=== PATIENT | female | born 1990 | race Caucasian/White ===

== ENCOUNTER 2019-10-25 15:55 | Observation (INO) | payer MEDICAID ==
[~2019-10-25] VITALS: Ht 165.1 cm; Wt 82.0 kg
[~2019-10-25 15:55] MED LIST: HYDR-3717 PO; LEVO1TAB PO
[2019-10-25] MEDS ORDERED: normal saline 1000ML IV soln IVB ONE ×3 (16:05→16:50)
[2019-10-25] MEDS ORDERED: ondansetron/PF 4mg/2ml inj IV ONE ×2 (16:20→17:55)
[2019-10-25] MEDS ORDERED: morphine 4 MG/ML inj SYRINge IV ONE ×2 (16:20→17:55)
[2019-10-25 16:39] LABS: BASOPHILS # (AUTO) 0.1 X10'3 (0-0.2); BASOPHILS % (AUTO) 1.3 % (0-1); EOSINOPHILS # (AUTO) 0.1 X10'3 (0-0.9); HEMATOCRIT 39.7 % (35.0-45.0); HEMOGLOBIN 13.8 g/dl (12.0-16.0); LYMPHOCYTES # (AUTO) 1.6 X10'3 (1.1-4.8); LYMPHOCYTES % (AUTO) 16.1 % (21-51); MEAN CORPUSCULAR HEMOGLOBIN 29.9 PG (27.0-31.0); MEAN CORPUSCULAR HGB CONC 34.7 g/dL (33.0-36.5); MEAN PLATELET VOLUME 8.3 FL (7.4-10.4); MONOCYTES # (AUTO) 0.4 X10'3 (0-0.9); MONOCYTES % (AUTO) 4.5 % (2-12); NEUTROPHILS # (AUTO) 7.6 X10'3 (1.8-7.7); NEUTROPHILS % (AUTO) 77.1 % (42-75); PLATELET COUNT 388 X10'3 (140-440); RED BLOOD COUNT 4.61 X10'6 (4.20-5.60); RED CELL DISTRIBUTION WIDTH 13.2 % (11.5-14.5); WHITE BLOOD COUNT 9.8 X10'3 (4.5-11.0)
--- NOTE | 2019-10-25 16:59 | NUR ---
RENAL/BLADDER US DONE
[2019-10-25 17:04] LABS: ALANINE AMINOTRANSFERASE 22 U/L (12-78); ALBUMIN 3.2 G/DL (3.4-5.0); ALBUMIN/GLOBULIN RATIO 0.8 (1.1-1.5); ALKALINE PHOSPHATASE 132 IU/L (46-116); AMYLASE 32 U/L (25-115); ANION GAP 9 (8-16); ASPARTATE AMINO TRANSFERASE 25 U/L (10-37); BILIRUBIN,TOTAL 0.2 MG/DL (0.1-1.0); BLOOD UREA NITROGEN 10 MG/DL (7-18); BUN/CREATININE RATIO 9.3 (6.6-38.0); CALCIUM 8.9 MG/DL (8.5-10.1); CHLORIDE 104 MMOL/L (99-107); CREATININE 1.07 MG/DL (0.40-0.90); GLUCOSE 105 MG/DL (70-104); LIPASE 159 U/L (73-393); POTASSIUM 3.6 MMOL/L (3.5-5.1); SODIUM 139 MMOL/L (135-145); TOTAL CARBON DIOXIDE 25.8 MMOL/L (24-32); TOTAL PROTEIN 7.2 G/DL (6.4-8.2); eGFR 60 ML/MIN
--- NOTE | 2019-10-25 17:06 | NUR ---
Mobyko STATES THERES ABOUT 18CC OF URINE IN BLADDER. WILL COLLECT URINE AFTER 2ND BOLUS OF FLUID OR WHEN PT HAS URGE TO URINATE.
[2019-10-25] MEDS ORDERED: normal saline 1000ml 1,000 ML IVB ONE (18:02)
[2019-10-25 18:29] LABS: CLARITY,URINE CLEAR (Clear); COLOR,URINE YELLOW (Yellow); GLUCOSE, URINE NEGATIVE (Neg); KETONES,URINE 15 mg/dl (Neg); LEUKOCYTE ESTERASE ,URINE NEGATIVE (Neg); NITRITES, URINE NEGATIVE (Neg); OCCULT BLOOD,URINE LARGE (Neg); PROTEIN,URINE TRACE mg/dl (Neg); UROBILINOGEN,URINE 0.2 E.U/dL (0.2-1.0)
[2019-10-25 18:33] LABS: UA COLLECTION TYPE STRAIGHT CATH
[2019-10-25 18:35] LABS: BACTERIA,URINE NONE SEEN /HPF (Neg); MUCUS STRANDS FEW /LPF (Neg); SQUAMOUS EPITHELIAL CELL,UR MODERATE /LPF (FEW); URINE HCG NEGATIVE (NEG); WBC,URINE 0-4 /HPF (0-4)
[2019-10-25] MEDS ORDERED: ketorolac tromethamine 15mg/ml inj. IV ONE (19:15)
[2019-10-25] MEDS ORDERED: meperidine/PF 50mg/ml syringe IV ONE (19:50)
[2019-10-25] MEDS ORDERED: NORG1TAB78 PO (20:19)
[2019-10-25] MEDS ORDERED: AMIT-189 PO (20:19)
[2019-10-25] MEDS ORDERED: morphine 2 MG/ML inj. syringe IV PRN (20:55)
[2019-10-25] MEDS ORDERED: magnesium 4gm in 100ml NS 100 ML IV PRN (20:55)
[2019-10-25] MEDS ORDERED: potassium CL 10mEq/100ml bag 100 ML IV PRN ×2 (20:55)
[2019-10-25] MEDS ORDERED: magnesium 2GM in 50ml NS 50 ML IV PRN (20:55)
[2019-10-25] MEDS ORDERED: acetaminophen 325mg tablet PO PRN (20:55)
[2019-10-25] MEDS ORDERED: magnesium Cl slow-release 64mg tablet PO PRN (20:55)
[2019-10-25] MEDS ORDERED: mag hydrox/Alum hydrox/simeth 30ml oral suspension PO PRN (20:55)
[2019-10-25] MEDS ORDERED: ondansetron/PF 4mg/2ml inj IV PRN (20:55)
[2019-10-25] MEDS ORDERED: magnesium hydroxide 30ml (MOM) UD suspension PO PRN (20:55)
[2019-10-25] MEDS ORDERED: HYDROcodone/acetaminophen 5mg/325mg tablet PO PRN (20:55)
[2019-10-25] MEDS ORDERED: potassium Cl 20 mEq SR tablet PO PRN ×2 (20:55)
[2019-10-25] MEDS ORDERED: sildenafil citrate 20mg tablet PO SCH (21:00)
--- NOTE | 2019-10-25 21:50 | NUR ---
Received report from FRAME TABLE OPERATORTAWANA Pappas. Patient to follow shortly.
[2019-10-25 22:00] VITALS: BP 109/77
--- NOTE | 2019-10-25 22:00 | NUR ---
Patient arrived to floor via W/C from ER accompanied by her . Pt. A&O x4 and in no apparent distress at this time. Pt. ambulated from w/c to bed and settled in. VS taken.
[2019-10-25] MEDS: amitriptyline 50mg tablet PO SCH (23:30)
[2019-10-25] MEDS: morphine 2 MG/ML inj. syringe IV PRN (23:34)
[2019-10-26] VITALS (10 sets, daily range): BP systolic 100–121; BP diastolic 61–79
[2019-10-26 05:12] LABS: BASOPHILS # (AUTO) 0.1 X10'3 (0-0.2); BASOPHILS % (AUTO) 0.8 % (0-1); EOSINOPHILS # (AUTO) 0.1 X10'3 (0-0.9); EOSINOPHILS % (AUTO) 0.8 % (0-6); HEMOGLOBIN 12.2 g/dl (12.0-16.0); LYMPHOCYTES # (AUTO) 2.3 X10'3 (1.1-4.8); LYMPHOCYTES % (AUTO) 22.8 % (21-51); MEAN CORPUSCULAR HGB CONC 34.8 g/dL (33.0-36.5); MEAN CORPUSCULAR VOLUME 86.2 FL (78-98); MEAN PLATELET VOLUME 8.9 FL (7.4-10.4); MONOCYTES # (AUTO) 0.7 X10'3 (0-0.9); MONOCYTES % (AUTO) 6.8 % (2-12); NEUTROPHILS # (AUTO) 6.9 X10'3 (1.8-7.7); NEUTROPHILS % (AUTO) 68.8 % (42-75); PLATELET COUNT 301 X10'3 (140-440); RED BLOOD COUNT 4.06 X10'6 (4.20-5.60); RED CELL DISTRIBUTION WIDTH 13.2 % (11.5-14.5)
[2019-10-26 05:20] LABS: ALBUMIN 2.4 G/DL (3.4-5.0); ANION GAP 7 (8-16); BLOOD UREA NITROGEN 8 MG/DL (7-18); BUN/CREATININE RATIO 7.8 (6.6-38.0); CALCIUM 7.7 MG/DL (8.5-10.1); CHLORIDE 110 MMOL/L (99-107); CREATININE 1.02 MG/DL (0.40-0.90); GLUCOSE 103 MG/DL (70-104); MAGNESIUM 1.7 MG/DL (1.5-2.4); PARTIAL THROMBOPLASTIN TIME 27 SECONDS (22-32); POTASSIUM 4.2 MMOL/L (3.5-5.1); SODIUM 142 MMOL/L (135-145); eGFR 64 ML/MIN
--- NOTE | 2019-10-26 06:15 | NUR ---
Patient in room TEETEE 347. I have received report from RODOLFO GILLIAM and had the opportunity to ask questions and assume patient care.
--- NOTE | 2019-10-26 06:30 | NUR ---
Problems reprioritized. Patient report given, questions answered & plan of care reviewed with Farrah GILLIAM.
[2019-10-26] MEDS ORDERED: heparin, porcine 5000 units/ml vial SQ SCH (08:00)
[2019-10-26] MEDS: K and/or MAG REPLACEMENT MC SCH (08:00)
[2019-10-26] MEDS ORDERED: NORGESTIMATE ETHINYL ESTRADIOL PO SCH (08:00)
[2019-10-26] MEDS: normal saline 1000ml 1,000 ML IV SCH ×3 (08:08→22:49)
--- NOTE | 2019-10-26 08:09 | NUR ---
PT'S HOME MEDICATION IS NOT WITH HER. SHE CALLED HER TO BEING IT IN TODAY. WILL NOTIFY PHARMACY.
[2019-10-26] MEDS ORDERED: pneumococcal 23-VAL P-sac vacc 25 mcg/0.5ml vial IMVAC ONE (10:00)
[2019-10-26] MEDS: morphine 2 MG/ML inj. syringe IV PRN ×2 (10:47→22:51)
[2019-10-26] MEDS ORDERED: fentaNYL/PF 50MCG/1 ML 2ML syringe ONE (14:29)
[2019-10-26] MEDS ORDERED: midazolam 2 mg/2 ml injection ONE (14:30)
[2019-10-26] MEDS ORDERED: propofol inj 20 ML IV ONE (14:35)
[2019-10-26] MEDS ORDERED: ceFAZolin 1000mg inj ONE ×2 (14:39)
--- NOTE | 2019-10-26 15:15 | NUR ---
Received from OR via BED, accompanied by Anesthesiologist DR MUHAMMAD and report given by Anesthesiolgist. PATIENT A&OX4, DENIES PAIN, V/S WNL, NEUROVASCULAR CHECKS INTACT, 20G PIV TO RUE, SCD ON, NO DRESSINGS, NO DRAINAGE FROM CYSTOSCOPY
[2019-10-26] MEDS ORDERED: ringers solution, lacted 1,000 ML IV SCH (15:19)
[2019-10-26] MEDS ORDERED: proCHLORperazine 10 MG/2 ml inj IV PRN (15:20)
[2019-10-26] MEDS ORDERED: ondansetron/PF 4mg/2ml inj IV PRN (15:20)
[2019-10-26] MEDS ORDERED: meperidine/PF 25mg/ml syringe IV PRN ×3 (15:20)
[2019-10-26] MEDS ORDERED: morphine 4 MG/ML inj SYRINge IV PRN ×2 (15:20)
--- NOTE | 2019-10-26 15:55 | NUR ---
PATIENT A&OX4, DENIES PAIN, V/S WNL, NEUROVASCULAR CHECKS INTACT, 20G PIV TO RUE, SCD ON, NO DRESSINGS, NO DRAINAGE FROM CYSTOSCOPY. ALL CRITERIA FOR TRANSFER TO THE FLOOR HAS BEEN ACHIEVED. VSS. BED LOW, CALL LIGHT AND VS. SET IN PLACE. RN PRESENT TO ACCEPT CARE. PATIENT RESTING COMFORTABLY IN BED. BELONGINGS SENT WITH PATIENT. DRESSINGS CDI.
--- NOTE | 2019-10-26 17:40 | NUR ---
Problems reprioritized. Patient report given, questions answered & plan of care reviewed with RODOLFO GILLIAM.
--- NOTE | 2019-10-26 18:30 | NUR ---
Patient in room TEETEE 347. I have received report from Farrah GILLIAM and had the opportunity to ask questions and assume patient care.
[2019-10-26] MEDS: amitriptyline 50mg tablet PO SCH (20:47)
[2019-10-27] VITALS: BP 98/64
[2019-10-27 05:20] LABS: ALBUMIN 2.3 G/DL (3.4-5.0); ANION GAP 8 (8-16); BLOOD UREA NITROGEN 6 MG/DL (7-18); BUN/CREATININE RATIO 6.4 (6.6-38.0); CALCIUM 7.8 MG/DL (8.5-10.1); CHLORIDE 110 MMOL/L (99-107); CREATININE 0.94 MG/DL (0.40-0.90); GLUCOSE 89 MG/DL (70-104); MAGNESIUM 1.7 MG/DL (1.5-2.4); POTASSIUM 3.8 MMOL/L (3.5-5.1); SODIUM 143 MMOL/L (135-145); TOTAL CARBON DIOXIDE 24.6 MMOL/L (24-32); eGFR 70 ML/MIN
[2019-10-27 05:26] LABS: BASOPHILS # (AUTO) 0.1 X10'3 (0-0.2); BASOPHILS % (AUTO) 0.6 % (0-1); EOSINOPHILS # (AUTO) 0.2 X10'3 (0-0.9); EOSINOPHILS % (AUTO) 3.1 % (0-6); HEMATOCRIT 35.1 % (35.0-45.0); HEMOGLOBIN 12.1 g/dl (12.0-16.0); LYMPHOCYTES # (AUTO) 2.3 X10'3 (1.1-4.8); LYMPHOCYTES % (AUTO) 29.1 % (21-51); MEAN CORPUSCULAR HEMOGLOBIN 30.2 PG (27.0-31.0); MEAN CORPUSCULAR HGB CONC 34.5 g/dL (33.0-36.5); MEAN CORPUSCULAR VOLUME 87.4 FL (78-98); MEAN PLATELET VOLUME 8.7 FL (7.4-10.4); MONOCYTES # (AUTO) 0.4 X10'3 (0-0.9); MONOCYTES % (AUTO) 5.3 % (2-12); NEUTROPHILS % (AUTO) 61.9 % (42-75); PLATELET COUNT 290 X10'3 (140-440); RED BLOOD COUNT 4.02 X10'6 (4.20-5.60); RED CELL DISTRIBUTION WIDTH 13.4 % (11.5-14.5); WHITE BLOOD COUNT 8.1 X10'3 (4.5-11.0)
--- NOTE | 2019-10-27 06:23 | NUR ---
Patient in room TEETEE 346. I have received report from RODOLFO GILLIAM and had the opportunity to ask questions and assume patient care.
[2019-10-27 07:00] VITALS: BP 100/56
[2019-10-27] MEDS: K and/or MAG REPLACEMENT MC SCH (08:00)
[2019-10-27] MEDS: normal saline 1000ml 1,000 ML IV SCH (08:54)
[2019-10-27] MEDS ORDERED: PHEN-716 PO (09:25)
== END 2019-10-27 10:30 | disposition home or self-care (01) ==
LOC: ER 15:55 → INTOOBSV 21:23 → ED HOLD 21:23 → SUR 3N 22:00
PROVIDERS: ADMIT Hospitalist; ATTEND Hospitalist
DX: N13.2 Hydronephrosis with renal and ureteral calculous obstruction (principal); Z23 Encounter for immunization; Z88.8 Allergy status to other drugs, medicaments and biological substances
CPT/HCPCS: 36415; 52320; 52332; 74176; 76000; 76775; 80048; 80053; 81001; 81025; 82150; 83690; 83735; 85025; 85610; 85730; 87081; 90471; 90732; 96374; 96375; 96376; 99284; C1769; C2617; G0378; J0690; J1885; J2175; J2250; J2270; J2405; J2704; J3010; J7030; A4618; J7120

== ENCOUNTER 2019-11-22 20:10 | Inpatient (IN) | payer MEDICAID, OTHER ==
[~2019-11-22] VITALS: Ht 165.1 cm; Wt 93.0 kg
[~2019-11-22 20:10] MED LIST changes: +AMIT-189 PO; -HYDR-3717 PO; -LEVO1TAB PO; +NORG1TAB78 PO; +PHEN-716 PO
[2019-11-22 21:39] LABS: CLARITY,URINE CLOUDY (Clear); COLOR,URINE YELLOW (Yellow); GLUCOSE, URINE NEGATIVE (Neg); KETONES,URINE TRACE mg/dl (Neg); LEUKOCYTE ESTERASE ,URINE SMALL (Neg); NITRITES, URINE NEGATIVE (Neg); OCCULT BLOOD,URINE LARGE (Neg); PROTEIN,URINE 100 mg/dl (Neg); UROBILINOGEN,URINE 0.2 E.U/dL (0.2-1.0)
[2019-11-22 21:40] LABS: UA COLLECTION TYPE CLN CATCH MIDSTREAM
[2019-11-22 21:48] LABS: BACTERIA,URINE 1+ /HPF (Neg)
[2019-11-22 21:49] LABS: SQUAMOUS EPITHELIAL CELL,UR MODERATE /LPF (FEW)
[2019-11-22] MEDS ORDERED: meperidine/PF 50mg/ml syringe IV ONE (21:55)
[2019-11-22] MEDS ORDERED: ondansetron/PF 4mg/2ml inj IV ONE (21:55)
[2019-11-22] MEDS ORDERED: ketorolac tromethamine 15mg/ml inj. IV ONE (21:55)
[2019-11-22] MEDS ORDERED: CefTRIAXone 2gm/D5W 50ml 50 ML IV ONE (21:55)
[2019-11-22] MEDS ORDERED: normal saline 1000ML IV soln IV ONE (21:55)
[2019-11-22] MEDS ORDERED: tamsulosin 0.4mg capsule PO ONE (21:55)
[2019-11-22 22:15] LABS: URINE HCG NEGATIVE (NEG)
[2019-11-22 22:38] LABS: BASOPHILS # (AUTO) 0.1 X10'3 (0-0.2); EOSINOPHILS # (AUTO) 0.2 X10'3 (0-0.9); EOSINOPHILS % (AUTO) 2.5 % (0-6); HEMATOCRIT 43.5 % (35.0-45.0); HEMOGLOBIN 15.2 g/dl (12.0-16.0); LYMPHOCYTES # (AUTO) 2.1 X10'3 (1.1-4.8); LYMPHOCYTES % (AUTO) 23.9 % (21-51); MEAN CORPUSCULAR HEMOGLOBIN 30.1 PG (27.0-31.0); MEAN CORPUSCULAR HGB CONC 34.8 g/dL (33.0-36.5); MEAN CORPUSCULAR VOLUME 86.3 FL (78-98); MEAN PLATELET VOLUME 8.7 FL (7.4-10.4); MONOCYTES # (AUTO) 0.3 X10'3 (0-0.9); NEUTROPHILS # (AUTO) 5.9 X10'3 (1.8-7.7); NEUTROPHILS % (AUTO) 68.6 % (42-75); PLATELET COUNT 460 X10'3 (140-440); RED BLOOD COUNT 5.04 X10'6 (4.20-5.60); RED CELL DISTRIBUTION WIDTH 13.7 % (11.5-14.5); WHITE BLOOD COUNT 8.6 X10'3 (4.5-11.0)
[2019-11-22 22:48] LABS: PARTIAL THROMBOPLASTIN TIME 27 SECONDS (22-32)
[2019-11-22 22:50] LABS: ALANINE AMINOTRANSFERASE 50 U/L (12-78); ALBUMIN 3.7 G/DL (3.4-5.0); ALBUMIN/GLOBULIN RATIO 0.8 (1.1-1.5); ALKALINE PHOSPHATASE 135 IU/L (46-116); ANION GAP 11 (8-16); ASPARTATE AMINO TRANSFERASE 35 U/L (10-37); BILIRUBIN,TOTAL 0.2 MG/DL (0.1-1.0); BLOOD UREA NITROGEN 9 MG/DL (7-18); BUN/CREATININE RATIO 9.1 (6.6-38.0); CALCIUM 8.9 MG/DL (8.5-10.1); CHLORIDE 105 MMOL/L (99-107); CREATININE 0.99 MG/DL (0.40-0.90); GLUCOSE 107 MG/DL (70-104); MAGNESIUM 1.9 MG/DL (1.5-2.4); POTASSIUM 3.5 MMOL/L (3.5-5.1); SODIUM 141 MMOL/L (135-145); TOTAL CARBON DIOXIDE 25.5 MMOL/L (24-32); TOTAL PROTEIN 8.1 G/DL (6.4-8.2); eGFR 66 ML/MIN
[2019-11-22] MEDS ORDERED: mag hydrox/Alum hydrox/simeth 30ml oral suspension PO PRN (23:45)
[2019-11-22] MEDS ORDERED: magnesium 2GM in 50ml NS 50 ML IV PRN (23:45)
[2019-11-22] MEDS ORDERED: morphine 2 MG/ML inj. syringe IV PRN ×2 (23:45)
[2019-11-22] MEDS ORDERED: acetaminophen 325mg tablet PO PRN ×2 (23:45)
[2019-11-22] MEDS ORDERED: magnesium hydroxide 30ml (MOM) UD suspension PO PRN (23:45)
[2019-11-22] MEDS ORDERED: ondansetron/PF 4mg/2ml inj IV PRN (23:45)
[2019-11-22] MEDS ORDERED: magnesium 4gm in 100ml NS 100 ML IV PRN (23:45)
[2019-11-22] MEDS ORDERED: potassium CL 10mEq/100ml bag 100 ML IV PRN ×2 (23:45)
[2019-11-22] MEDS ORDERED: magnesium Cl slow-release 64mg tablet PO PRN (23:45)
[2019-11-22] MEDS ORDERED: potassium Cl 20 mEq SR tablet PO PRN ×2 (23:45)
--- NOTE | 2019-11-22 23:50 | NUR ---
PT NPO STATUS
--- NOTE | 2019-11-23 | NUR ---
Patient in room TEETEE 354. I have received report from TAWANA Hooks and had the opportunity to ask questions and assume patient care.
[2019-11-23 00:19] VITALS: BP 120/89
[2019-11-23] MEDS: HYDROcodone/acetaminophen 5mg/325mg tablet PO PRN ×2 (00:46→07:20)
[2019-11-23] MEDS ORDERED: ketorolac tromethamine 15mg/ml inj. IM PRN (02:35)
[2019-11-23 05:39] LABS: BASOPHILS # (AUTO) 0.1 X10'3 (0-0.2); BASOPHILS % (AUTO) 1.3 % (0-1); EOSINOPHILS # (AUTO) 0.2 X10'3 (0-0.9); EOSINOPHILS % (AUTO) 2.9 % (0-6); HEMATOCRIT 37.8 % (35.0-45.0); HEMOGLOBIN 12.9 g/dl (12.0-16.0); LYMPHOCYTES # (AUTO) 2.6 X10'3 (1.1-4.8); LYMPHOCYTES % (AUTO) 36.1 % (21-51); MEAN CORPUSCULAR HEMOGLOBIN 29.7 PG (27.0-31.0); MEAN CORPUSCULAR HGB CONC 34.3 g/dL (33.0-36.5); MEAN CORPUSCULAR VOLUME 86.6 FL (78-98); MEAN PLATELET VOLUME 8.6 FL (7.4-10.4); MONOCYTES # (AUTO) 0.6 X10'3 (0-0.9); MONOCYTES % (AUTO) 8.1 % (2-12); NEUTROPHILS # (AUTO) 3.7 X10'3 (1.8-7.7); NEUTROPHILS % (AUTO) 51.6 % (42-75); PLATELET COUNT 319 X10'3 (140-440); RED BLOOD COUNT 4.36 X10'6 (4.20-5.60); RED CELL DISTRIBUTION WIDTH 13.3 % (11.5-14.5); WHITE BLOOD COUNT 7.1 X10'3 (4.5-11.0)
[2019-11-23 05:43] LABS: ALBUMIN 2.8 G/DL (3.4-5.0); ANION GAP 8 (8-16); BLOOD UREA NITROGEN 8 MG/DL (7-18); CHLORIDE 109 MMOL/L (99-107); CREATININE 0.89 MG/DL (0.40-0.90); GLUCOSE 85 MG/DL (70-104); MAGNESIUM 1.8 MG/DL (1.5-2.4); POTASSIUM 3.7 MMOL/L (3.5-5.1); SODIUM 143 MMOL/L (135-145); TOTAL CARBON DIOXIDE 25.9 MMOL/L (24-32); eGFR 74 ML/MIN
--- NOTE | 2019-11-23 06:29 | NUR ---
Problems reprioritized. Patient report given, questions answered & plan of care reviewed with TAWANA Yan.
--- NOTE | 2019-11-23 06:30 | NUR ---
Patient in room TEETEE 354. I have received report from shaista wu and had the opportunity to ask questions and assume patient care.
[2019-11-23 07:05] VITALS: BP 107/67
--- NOTE | 2019-11-23 07:20 | NUR ---
pt was sleepy and taking shallow breathes. had her deep breathe cough and rechecked her temp and pulse temp 98.0 pulse 78
[2019-11-23] MEDS ORDERED: NORGESTIMATE ETHINYL ESTRADIOL PO SCH ×2 (08:00)
[2019-11-23] MEDS ORDERED: K and/or MAG REPLACEMENT MC SCH (08:00)
[2019-11-23] MEDS ORDERED: phenazopyridine 100mg tablet PO SCH (08:00)
[2019-11-23] MEDS ORDERED: FLU VACC QS2019-20 36MOS UP/PF 60 MCG/0.5 ML SYRINGE IMVAC ONE (10:00)
[2019-11-23] MEDS ORDERED: normal saline 1000ml 1,000 ML IV SCH (10:50)
[2019-11-23 11:00] VITALS: BP 105/67
[2019-11-23] MEDS ORDERED: CIPR-259 PO (14:08)
[2019-11-23] MEDS ORDERED: OMEP-297 PO (14:08)
[2019-11-23] MEDS ORDERED: IBUP-1984 PO (14:08)
[2019-11-23] MEDS ORDERED: ketorolac tromethamine 15mg/ml inj. IV PRN (16:00)
--- NOTE | 2019-11-23 16:14 | NUR ---
CHIKIS SCANNED MORPHINE AT 1315 TO GIVE TO PT, HE QUESTIONED ME ABOUT THE PAIN MED, ADMINISTERED THE PAIN MED IN MY PRESENCE BUT FORGOT TO SAVE THE DOCUMENTATION. CALLED PRAVEENA TO ASK HOW TO CORRECT THIS. SHE WALKED US THROUGH HOW TO BACK TIME TO THE TIME MED WAS GIVEN. DOCUMENTED AND EXPLAINED TO CHIKIS.
[2019-11-23] MEDS ORDERED: lactobacillus rhamnosus 10,000 MMU CELLS/CAPSULE PO SCH (20:00)
[2019-11-23] MEDS ORDERED: amitriptyline 50mg tablet PO SCH (21:00)
[2019-11-23] MEDS ORDERED: CefTRIAXone 2gm/D5W 50ml 50 ML IV SCH (21:00)
== END 2019-11-23 16:16 | disposition home or self-care (01) | DRG 690 ==
LOC: ER 20:15 → ED HOLD 11-23 00:28 → SUR 3N 11-23 00:35
PROVIDERS: ADMIT Hospitalist; ATTEND Internal Medicine
DX: N39.0 Urinary tract infection, site not specified (principal); Z82.49 Family history of ischemic heart disease and other diseases of the circulatory system; Z87.442 Personal history of urinary calculi; Z23 Encounter for immunization; Z88.8 Allergy status to other drugs, medicaments and biological substances; Z79.899 Other long term (current) drug therapy
CPT/HCPCS: 36415; 80048; 80053; 81001; 81025; 83605; 83735; 84145; 85025; 85610; 85730; 87040; 87077; 87081; 87088; 87186; 96365; 96375; 99285; G0378; J0696; J1885; J2175; J2270; J2405; J7030; Q2037

== ENCOUNTER 2020-08-27 03:10 | Inpatient (IN) | payer MEDICAID ==
[~2020-08-27] VITALS: Ht 165.1 cm; Wt 91.7 kg
[~2020-08-27 03:10] MED LIST changes: +OMEP20CA15 PO
[2020-08-27] MEDS ORDERED: ondansetron/PF 4mg/2ml inj IV ONE (03:30)
[2020-08-27] MEDS ORDERED: ketorolac trometh. 30mg/ml inj. IV ONE (03:30)
[2020-08-27 03:57] LABS: BASOPHILS # (AUTO) 0.1 X10'3 (0-0.2); BASOPHILS % (AUTO) 0.9 % (0-1); CLARITY,URINE CLOUDY (Clear); COLOR,URINE YELLOW (Yellow); EOSINOPHILS # (AUTO) 0.2 X10'3 (0-0.9); GLUCOSE, URINE NEGATIVE (Neg); HEMATOCRIT 39.8 % (35.0-45.0); HEMOGLOBIN 13.5 g/dl (12.0-16.0); KETONES,URINE NEGATIVE (Neg); LEUKOCYTE ESTERASE ,URINE SMALL (Neg); LYMPHOCYTES # (AUTO) 2.9 X10'3 (1.1-4.8); LYMPHOCYTES % (AUTO) 24.6 % (21-51); MEAN CORPUSCULAR HEMOGLOBIN 29.4 PG (27.0-31.0); MEAN CORPUSCULAR HGB CONC 33.8 g/dL (33.0-36.5); MEAN PLATELET VOLUME 8.3 FL (7.4-10.4); MONOCYTES # (AUTO) 0.8 X10'3 (0-0.9); MONOCYTES % (AUTO) 6.5 % (2-12); NEUTROPHILS # (AUTO) 7.7 X10'3 (1.8-7.7); NITRITES, URINE NEGATIVE (Neg); OCCULT BLOOD,URINE SMALL (Neg); PH,URINE 5.5 (4.8-8.0); PLATELET COUNT 427 X10'3 (140-440); PROTEIN,URINE 30 mg/dl (Neg); RED BLOOD COUNT 4.57 X10'6 (4.20-5.60); RED CELL DISTRIBUTION WIDTH 13.8 % (11.5-14.5); UROBILINOGEN,URINE 0.2 E.U/dL (0.2-1.0); WHITE BLOOD COUNT 11.6 X10'3 (4.5-11.0)
[2020-08-27 03:58] LABS: URINE HCG NEGATIVE (NEG)
[2020-08-27 04:02] LABS: ALANINE AMINOTRANSFERASE 30 U/L (12-78); ALBUMIN 3.6 G/DL (3.4-5.0); ALBUMIN/GLOBULIN RATIO 0.9 (1.1-1.5); ALKALINE PHOSPHATASE 161 IU/L (46-116); ANION GAP 11 (8-16); ASPARTATE AMINO TRANSFERASE 18 U/L (10-37); BILIRUBIN,TOTAL 0.3 MG/DL (0.1-1.0); BLOOD UREA NITROGEN 11 MG/DL (7-18); BUN/CREATININE RATIO 9.7 (6.6-38.0); CALCIUM 8.6 MG/DL (8.5-10.1); CHLORIDE 102 MMOL/L (99-107); CREATININE 1.13 MG/DL (0.40-0.90); GLUCOSE 130 MG/DL (70-104); LIPASE 180 U/L (73-393); POTASSIUM 3.7 MMOL/L (3.5-5.1); SODIUM 137 MMOL/L (135-145); TOTAL CARBON DIOXIDE 24.4 MMOL/L (24-32); TOTAL PROTEIN 7.7 G/DL (6.4-8.2); UA COLLECTION TYPE CLN CATCH MIDSTREAM; eGFR 56 ML/MIN
[2020-08-27 04:20] LABS: BACTERIA,URINE 3+ /HPF (Neg); SQUAMOUS EPITHELIAL CELL,UR MANY /LPF (FEW); WBC,URINE TNTC /HPF (0-4)
[2020-08-27] MEDS ORDERED: morphine 4 MG/ML inj SYRINge IV ONE ×2 (04:20→05:15)
[2020-08-27 04:21] LABS: WBC CLUMPS,URINE MANY /HPF (NEGATIVE)
[2020-08-27] MEDS ORDERED: fentaNYL/PF 50MCG/1 ML 2ML syringe IV ONE ×2 (04:35→05:55)
[2020-08-27] MEDS ORDERED: CefTRIAXone 2gm/D5W 50ml 50 ML IV ONE (05:15)
[2020-08-27] MEDS ORDERED: tamsulosin 0.4mg capsule PO ONE (06:25)
[2020-08-27] MEDS ORDERED: ketorolac tromethamine 15mg/ml inj. IV ONE (06:55)
[2020-08-27] MEDS ORDERED: LIDOcaine Viscous 15ml cup MM STA (07:43)
[2020-08-27] MEDS ORDERED: mag hydrox/Alum hydrox/simeth 30ml oral suspension PO STA (07:43)
[2020-08-27] MEDS ORDERED: acetaminophen 325mg tablet PO PRN (07:55)
[2020-08-27] MEDS ORDERED: morphine 2 MG/ML inj. syringe IV PRN (07:55)
[2020-08-27] MEDS ORDERED: magnesium hydroxide 30ml (MOM) UD suspension PO PRN (07:55)
[2020-08-27] MEDS ORDERED: mag hydrox/Alum hydrox/simeth 30ml oral suspension PO PRN (07:55)
[2020-08-27] MEDS: normal saline 1000ml 1,000 ML IV SCH ×2 (07:57→17:26)
[2020-08-27] MEDS ORDERED: CefTRIAXone/D5W-Rocephin 1gm 50 ML IV SCH (08:00)
--- NOTE | 2020-08-27 08:30 | NUR ---
RECEIVED REPORT FROM TAWANA LONDON. AWAITING PATIENT ARRIVAL.
[2020-08-27 08:35] LABS: CLARITY,URINE TURBID (Clear); COLOR,URINE YELLOW (Yellow); GLUCOSE, URINE NEGATIVE (Neg); KETONES,URINE NEGATIVE (Neg); LEUKOCYTE ESTERASE ,URINE MODERATE (Neg); NITRITES, URINE POSITIVE (Neg); OCCULT BLOOD,URINE MODERATE (Neg); PH,URINE 5.5 (4.8-8.0); PROTEIN,URINE 30 mg/dl (Neg); UROBILINOGEN,URINE 0.2 E.U/dL (0.2-1.0)
[2020-08-27 08:40] VITALS: BP 118/68
[2020-08-27 08:53] LABS: UA COLLECTION TYPE CLN CATCH MIDSTREAM
[2020-08-27 08:55] LABS: WBC,URINE TNTC /HPF (0-4)
--- NOTE | 2020-08-27 08:57 | NUR ---
DR COATES CALLED AND NOTIFIED THAT 0800 ROCEPHIN HELD DUE TO PT RECEIVING 2G OF ROCEPHEN AT 0532. PHARMACY NOTIFIED TO RESCHEDULE ROCEPHIN FOR TOMORROW MORNING
[2020-08-27 08:58] LABS: BACTERIA,URINE 3+ /HPF (Neg); SQUAMOUS EPITHELIAL CELL,UR FEW /LPF (FEW); WBC CLUMPS,URINE MODERATE /HPF (NEGATIVE)
--- NOTE | 2020-08-27 09:00 | NUR ---
PATIENT ARRIVED TO THE FLOOR. VSS. C/O 09/06 PAIN.
[2020-08-27] MEDS: morphine 2 MG/ML inj. syringe IV PRN ×2 (09:12→20:39)
[2020-08-27 11:00] VITALS: BP 116/66
[2020-08-27] MEDS ORDERED: normal saline 1000ml 1,000 ML IV ONE (15:35)
--- NOTE | 2020-08-27 18:21 | NUR ---
Problems reprioritized. Patient report given, questions answered & plan of care reviewed with TAWANA NEAL.
--- NOTE | 2020-08-27 18:30 | NUR ---
Patient in room TEETEE 349. I have received report from VINCE GILLIAM and had the opportunity to ask questions and assume patient care.
[2020-08-27 20:00] VITALS: BP 99/60
[2020-08-27] MEDS: tamsulosin 0.4mg capsule PO SCH (20:38)
[2020-08-28] VITALS (19 sets, daily range): BP systolic 97–126; BP diastolic 54–77
[2020-08-28] MEDS: morphine 2 MG/ML inj. syringe IV PRN ×4 (01:31→19:48)
[2020-08-28] MEDS: ondansetron/PF 4mg/2ml inj IV PRN ×2 (01:33→21:55)
[2020-08-28] MEDS: normal saline 1000ml 1,000 ML IV SCH ×3 (03:24→19:55)
[2020-08-28 05:44] LABS: BASOPHILS # (AUTO) 0.1 X10'3 (0-0.2); BASOPHILS % (AUTO) 0.9 % (0-1); EOSINOPHILS # (AUTO) 0.3 X10'3 (0-0.9); EOSINOPHILS % (AUTO) 2.2 % (0-6); HEMATOCRIT 37.8 % (35.0-45.0); HEMOGLOBIN 12.8 g/dl (12.0-16.0); LYMPHOCYTES # (AUTO) 2.2 X10'3 (1.1-4.8); LYMPHOCYTES % (AUTO) 18.4 % (21-51); MEAN CORPUSCULAR HEMOGLOBIN 29.6 PG (27.0-31.0); MEAN CORPUSCULAR HGB CONC 33.8 g/dL (33.0-36.5); MEAN CORPUSCULAR VOLUME 87.7 FL (78-98); MEAN PLATELET VOLUME 8.8 FL (7.4-10.4); MONOCYTES # (AUTO) 0.6 X10'3 (0-0.9); MONOCYTES % (AUTO) 5.4 % (2-12); NEUTROPHILS # (AUTO) 8.7 X10'3 (1.8-7.7); NEUTROPHILS % (AUTO) 73.1 % (42-75); PLATELET COUNT 311 X10'3 (140-440); RED BLOOD COUNT 4.32 X10'6 (4.20-5.60); RED CELL DISTRIBUTION WIDTH 14.1 % (11.5-14.5)
[2020-08-28 05:50] LABS: ALBUMIN 3.2 G/DL (3.4-5.0); ANION GAP 7 (8-16); BLOOD UREA NITROGEN 6 MG/DL (7-18); BUN/CREATININE RATIO 6.7 (6.6-38.0); CALCIUM 8.5 MG/DL (8.5-10.1); CHLORIDE 105 MMOL/L (99-107); CREATININE 0.89 MG/DL (0.40-0.90); GLUCOSE 90 MG/DL (70-104); POTASSIUM 3.6 MMOL/L (3.5-5.1); SODIUM 137 MMOL/L (135-145); eGFR 74 ML/MIN
--- NOTE | 2020-08-28 06:23 | NUR ---
Problems reprioritized. Patient report given, questions answered & plan of care reviewed with VINCE GILLIAM.
--- NOTE | 2020-08-28 07:18 | NUR ---
PAGER ID: [phone] MESSAGE: Luiz HdzB : pt's pain is not being controlled with 2mg morphine q4h. [email or web address] [id number]
[2020-08-28] MEDS ORDERED: ketorolac trometh. 30mg/ml inj. IV ONE (07:55)
[2020-08-28] MEDS: CefTRIAXone/D5W-Rocephin 1gm 50 ML IV SCH (08:11)
--- NOTE | 2020-08-28 08:28 | NUR ---
Patient stated last BM was "yesterday 08/27." Addendum: 08/28/20 at 0833 by Miguel Angel ANDREWS Amended: Links added.
--- NOTE | 2020-08-28 08:35 | NUR ---
report called to sow manager.
[2020-08-28] MEDS ORDERED: iohexol 300 MG/1 ML 50ml polymer ONE (08:39)
[2020-08-28] MEDS ORDERED: morphine 2 MG/ML inj. syringe IV PRN (09:30)
[2020-08-28] MEDS ORDERED: meperidine/PF 25mg/ml syringe IV PRN ×3 (09:30)
[2020-08-28] MEDS ORDERED: proCHLORperazine 10 MG/2 ml inj IV PRN (09:30)
[2020-08-28] MEDS ORDERED: morphine 4 MG/ML inj SYRINge IV PRN (09:30)
[2020-08-28] MEDS ORDERED: ondansetron/PF 4mg/2ml inj IV PRN (09:30)
[2020-08-28] MEDS ORDERED: ringers solution, lacted 1,000 ML IV SCH (09:30)
[2020-08-28] MEDS ORDERED: fentaNYL/PF 50MCG/1 ML 2ML syringe ONE ×2 (09:36→11:18)
[2020-08-28] MEDS ORDERED: midazolam 2 mg/2 ml injection ONE (09:37)
[2020-08-28] MEDS ORDERED: pneumococcal 23-VAL P-sac vacc 25 mcg/0.5ml vial IMVAC ONE (10:00)
[2020-08-28] MEDS ORDERED: propofol inj 20 ML IV ONE (11:19)
--- NOTE | 2020-08-28 11:52 | NUR ---
RECEIVED FROM OR VIA BED WITH OHTF ACCOMPANIED BY ANESTHESIOLOGIST DR MUHAMMAD, REPORT GIVEN. 20 GAUGE PIV L AC PATENT AND RUNNING LR AT 100 ML/HR. PT AWAKE, ALERT AND DENIES PAIN AT THIS TIME. SALINAS, VSS, ABD SOFT, SKIN PINK AND WARM, BRISK CAP REFILL, SCDS APPLIED, PT RESTING COMFORTABLY.
--- NOTE | 2020-08-28 12:38 | NUR ---
Student documentation: I have reviewed all interventions, assessments performed and documented by Leti GOSS from [facility]. Student Medication Administration: For all medication-pass' in the time frame of 1160-3431, all medications were reviewed, dispensed, administered and documented per hospital policy by Leti GOSS from [facility].
--- NOTE | 2020-08-28 12:48 | NUR ---
Received report from Mariah GILLIAM in recovery.
--- NOTE | 2020-08-28 12:52 | NUR ---
TRANSPORTED VIA BED WITH OHTF WITH ALL BED RAILS UP, REPORT GIVEN. 20 GAUGE PIV L AC PATENT AND RUNNING LR AT 100 ML/HR. PT AWAKE, ALERT AND DENIES PAIN AT THIS TIME. SALINAS, VSS, ABD SOFT, SKIN PINK AND WARM, BRISK CAP REFILL, SCDS APPLIED, PT RESTING COMFORTABLY. PT URINATED 200 ML AT 1215, BLADDER SCAN AT 1230 REVEALED 20 ML RESIDUAL, PT URINATED AGAIN 100 ML AT 1245. LEFT IN CARE OF MELINDA GILLIAM.
--- NOTE | 2020-08-28 14:23 | NUR ---
PAGER ID: [phone] MESSAGE: Luiz HdzB : pt back from recovery...c/o pain. 2mg morphine only took pain from 8 to 5. cramping in lower abd. [email or web address] [id number]
[2020-08-28] MEDS: HYDROcodone/acetaminophen 10/325mg tab PO PRN ×2 (15:53→21:37)
--- NOTE | 2020-08-28 18:23 | NUR ---
Problems reprioritized. Patient report given, questions answered & plan of care reviewed with TAWANA Meade.
--- NOTE | 2020-08-28 18:25 | NUR ---
Patient in room TEETEE 349. I have received report from TAWANA Avery and had the opportunity to ask questions and assume patient care.
[2020-08-28] MEDS: tamsulosin 0.4mg capsule PO SCH (20:07)
[2020-08-28] MEDS: lactobacillus rhamnosus 10,000 MMU CELLS/CAPSULE PO SCH (20:07)
--- NOTE | 2020-08-28 22:10 | NUR ---
Called Dr. Vilchis and left a voicemail to call back.
--- NOTE | 2020-08-28 22:15 | NUR ---
Received call from Dr. Ha. Pt's pain remains 08/07 and patient is shivering. Neihart 1 tab just administered and morphine 2mg given at 1947. Received order for Toradol 15mg Q6H PRN and order placed. Dr. Ha informed of pt's current temp, 99.2 F and 2 small stones. No changes in orders. Will continue to monitor patient. Addendum: 08/29/20 at 0634 by Halina Venegas RN Per Dr. Ha, stones do not need to be sent to lab.
[2020-08-28] MEDS: oxybutynin 5mg tablet PO PRN (22:19)
[2020-08-28] MEDS: ketorolac trometh. 30mg/ml inj. IV PRN (22:22)
[2020-08-29] VITALS (7 sets, daily range): BP systolic 96–115; BP diastolic 50–66
[2020-08-29] MEDS: morphine 2 MG/ML inj. syringe IV PRN ×4 (00:03→19:16)
[2020-08-29] MEDS: HYDROcodone/acetaminophen 10/325mg tab PO PRN ×3 (01:18→23:26)
[2020-08-29] MEDS: oxybutynin 5mg tablet PO PRN ×2 (05:59→22:05)
[2020-08-29 06:05] LABS: BASOPHILS # (AUTO) 0.1 X10'3 (0-0.2); BASOPHILS % (AUTO) 0.7 % (0-1); EOSINOPHILS # (AUTO) 0.1 X10'3 (0-0.9); EOSINOPHILS % (AUTO) 0.5 % (0-6); HEMATOCRIT 37.3 % (35.0-45.0); HEMOGLOBIN 12.5 g/dl (12.0-16.0); LYMPHOCYTES # (AUTO) 1.6 X10'3 (1.1-4.8); LYMPHOCYTES % (AUTO) 12.6 % (21-51); MEAN CORPUSCULAR HEMOGLOBIN 29.7 PG (27.0-31.0); MEAN CORPUSCULAR HGB CONC 33.6 g/dL (33.0-36.5); MEAN CORPUSCULAR VOLUME 88.5 FL (78-98); MEAN PLATELET VOLUME 8.5 FL (7.4-10.4); MONOCYTES # (AUTO) 0.9 X10'3 (0-0.9); MONOCYTES % (AUTO) 6.9 % (2-12); NEUTROPHILS # (AUTO) 10.3 X10'3 (1.8-7.7); NEUTROPHILS % (AUTO) 79.3 % (42-75); PLATELET COUNT 259 X10'3 (140-440); RED BLOOD COUNT 4.21 X10'6 (4.20-5.60); RED CELL DISTRIBUTION WIDTH 14.4 % (11.5-14.5)
[2020-08-29 06:32] LABS: ALBUMIN 2.9 G/DL (3.4-5.0); ANION GAP 10 (8-16); BLOOD UREA NITROGEN 6 MG/DL (7-18); BUN/CREATININE RATIO 5.5 (6.6-38.0); CALCIUM 7.9 MG/DL (8.5-10.1); CHLORIDE 102 MMOL/L (99-107); CREATININE 1.09 MG/DL (0.40-0.90); GLUCOSE 92 MG/DL (70-104); POTASSIUM 3.6 MMOL/L (3.5-5.1); SODIUM 134 MMOL/L (135-145); TOTAL CARBON DIOXIDE 22.2 MMOL/L (24-32); eGFR 59 ML/MIN
--- NOTE | 2020-08-29 06:35 | NUR ---
Problems reprioritized. Patient report given, questions answered & plan of care reviewed with TAWANA Hammond.
--- NOTE | 2020-08-29 06:47 | NUR ---
Patient in room TEETEE 349. I have received report from Halina GILLIAM and had the opportunity to ask questions and assume patient care.
--- NOTE | 2020-08-29 07:01 | NUR ---
Paged Dr. Parker PAGER ID: [phone] MESSAGE: Surgical flr Stephany RN ext [phone]. RE: Neva Hdz. Patient has fever this am 102.2F, pulse 121, BP 96/56. WBC 13.0 from 12, Patient on Rocephin IV daily. Do you want blood culture done?
[2020-08-29] MEDS: ketorolac trometh. 30mg/ml inj. IV PRN (07:14)
[2020-08-29] MEDS: CefTRIAXone/D5W-Rocephin 1gm 50 ML IV SCH (08:24)
[2020-08-29] MEDS: lactobacillus rhamnosus 10,000 MMU CELLS/CAPSULE PO SCH ×2 (08:24→22:03)
[2020-08-29] MEDS: normal saline 1000ml 1,000 ML IV SCH ×2 (08:24→22:07)
[2020-08-29] MEDS ORDERED: normal saline 1000ml 1,000 ML IV ONE (08:30)
--- NOTE | 2020-08-29 11:00 | NUR ---
Dr. Rae was notified about fever 102.2F this am and also that patient has low BP. I let him know that saw the patient and she ordered 1L of NS bolus.
--- NOTE | 2020-08-29 18:49 | NUR ---
Problems reprioritized. Patient report given, questions answered & plan of care reviewed with Elva GILLIAM.
[2020-08-29] MEDS: tamsulosin 0.4mg capsule PO SCH (22:03)
[2020-08-30] VITALS: BP 114/72
[2020-08-30] MEDS: morphine 2 MG/ML inj. syringe IV PRN ×2 (01:32→05:47)
[2020-08-30 05:14] LABS: BASOPHILS # (AUTO) 0.1 X10'3 (0-0.2); BASOPHILS % (AUTO) 0.6 % (0-1); EOSINOPHILS # (AUTO) 0.2 X10'3 (0-0.9); EOSINOPHILS % (AUTO) 2.2 % (0-6); HEMOGLOBIN 10.7 g/dl (12.0-16.0); LYMPHOCYTES # (AUTO) 1.9 X10'3 (1.1-4.8); LYMPHOCYTES % (AUTO) 18.5 % (21-51); MEAN CORPUSCULAR HEMOGLOBIN 29.4 PG (27.0-31.0); MEAN CORPUSCULAR HGB CONC 33.6 g/dL (33.0-36.5); MEAN CORPUSCULAR VOLUME 87.4 FL (78-98); MEAN PLATELET VOLUME 8.7 FL (7.4-10.4); MONOCYTES # (AUTO) 0.8 X10'3 (0-0.9); MONOCYTES % (AUTO) 7.8 % (2-12); NEUTROPHILS # (AUTO) 7.2 X10'3 (1.8-7.7); NEUTROPHILS % (AUTO) 70.9 % (42-75); PLATELET COUNT 277 X10'3 (140-440); RED BLOOD COUNT 3.66 X10'6 (4.20-5.60); RED CELL DISTRIBUTION WIDTH 14.1 % (11.5-14.5); WHITE BLOOD COUNT 10.1 X10'3 (4.5-11.0)
[2020-08-30 05:32] LABS: ALBUMIN 2.7 G/DL (3.4-5.0); ANION GAP 9 (8-16); BLOOD UREA NITROGEN 6 MG/DL (7-18); BUN/CREATININE RATIO 6.7 (6.6-38.0); CALCIUM 8.4 MG/DL (8.5-10.1); CHLORIDE 107 MMOL/L (99-107); GLUCOSE 104 MG/DL (70-104); POTASSIUM 3.3 MMOL/L (3.5-5.1); SODIUM 140 MMOL/L (135-145); TOTAL CARBON DIOXIDE 24.1 MMOL/L (24-32); eGFR 73 ML/MIN
[2020-08-30] MEDS: oxybutynin 5mg tablet PO PRN ×2 (05:50→13:08)
[2020-08-30] MEDS: normal saline 1000ml 1,000 ML IV SCH ×2 (05:55→07:55)
[2020-08-30 07:00] VITALS: BP 112/74
--- NOTE | 2020-08-30 07:00 | NUR ---
Patient in room TEETEE 349. I have received report from MICHAEL GILLIAM and had the opportunity to ask questions and assume patient care.
[2020-08-30] MEDS: lactobacillus rhamnosus 10,000 MMU CELLS/CAPSULE PO SCH ×2 (07:37→20:51)
[2020-08-30] MEDS: CefTRIAXone/D5W-Rocephin 1gm 50 ML IV SCH (07:38)
[2020-08-30] MEDS: ketorolac trometh. 30mg/ml inj. IV PRN ×2 (07:38→15:04)
[2020-08-30 11:00] VITALS: BP 98/55
[2020-08-30] MEDS ORDERED: magnesium Cl slow-release 64mg tablet PO PRN (11:45)
[2020-08-30] MEDS ORDERED: magnesium 4gm in 100ml NS 100 ML IV PRN (11:45)
[2020-08-30] MEDS ORDERED: potassium CL 10mEq/100ml bag 100 ML IV PRN (11:45)
[2020-08-30] MEDS ORDERED: potassium Cl 20 mEq SR tablet PO PRN (11:45)
[2020-08-30] MEDS: potassium Cl 20 mEq SR tablet PO PRN ×3 (12:44→23:44)
[2020-08-30] MEDS ORDERED: phenazopyridine 100mg tablet PO PRN (13:05)
--- NOTE | 2020-08-30 17:03 | NUR ---
patient seen by Dr Ha and Dr Rae. started on pyridium prn for bladder spasms and pain. Patient responds well to Toradol. for pain. Up and about in room. Lab notified patient has MDRO in urine. Placed in isolation.
--- NOTE | 2020-08-30 17:36 | NUR ---
Patients IV infiltrated. Replaced by Zaheer GILLIAM . patient appears stable .
--- NOTE | 2020-08-30 18:45 | NUR ---
Problems reprioritized. Patient report given, questions answered & plan of care reviewed with Jeni GILLIAM.
--- NOTE | 2020-08-30 18:45 | NUR ---
Patient in room TEETEE 349. I have received report from Ara GILLIAM and had the opportunity to ask questions and assume patient care.
[2020-08-30 20:00] VITALS: BP 106/69
[2020-08-30] MEDS: K and/or MAG REPLACEMENT MC SCH (20:00)
[2020-08-30] MEDS: tamsulosin 0.4mg capsule PO SCH (20:51)
[2020-08-30] MEDS ORDERED: amitriptyline 50mg tablet PO SCH (21:00)
[2020-08-31] VITALS: BP 105/58
[2020-08-31] MEDS: normal saline 1000ml 1,000 ML IV SCH ×2 (01:13→08:51)
[2020-08-31] MEDS: ketorolac trometh. 30mg/ml inj. IV PRN ×2 (03:01→08:55)
[2020-08-31 05:13] LABS: ALBUMIN 2.4 G/DL (3.4-5.0); ANION GAP 11 (8-16); BLOOD UREA NITROGEN 5 MG/DL (7-18); BUN/CREATININE RATIO 5.7 (6.6-38.0); CALCIUM 8.2 MG/DL (8.5-10.1); CHLORIDE 108 MMOL/L (99-107); CREATININE 0.87 MG/DL (0.40-0.90); GLUCOSE 150 MG/DL (70-104); POTASSIUM 3.4 MMOL/L (3.5-5.1); SODIUM 141 MMOL/L (135-145); TOTAL CARBON DIOXIDE 22.4 MMOL/L (24-32); eGFR 76 ML/MIN
[2020-08-31 05:20] LABS: BASOPHILS # (AUTO) 0.1 X10'3 (0-0.2); BASOPHILS % (AUTO) 0.7 % (0-1); EOSINOPHILS # (AUTO) 0.3 X10'3 (0-0.9); EOSINOPHILS % (AUTO) 3.4 % (0-6); HEMATOCRIT 31.2 % (35.0-45.0); HEMOGLOBIN 10.5 g/dl (12.0-16.0); LYMPHOCYTES # (AUTO) 2.1 X10'3 (1.1-4.8); LYMPHOCYTES % (AUTO) 22.9 % (21-51); MEAN CORPUSCULAR HEMOGLOBIN 29.4 PG (27.0-31.0); MEAN CORPUSCULAR HGB CONC 33.8 g/dL (33.0-36.5); MONOCYTES # (AUTO) 0.7 X10'3 (0-0.9); MONOCYTES % (AUTO) 8.3 % (2-12); NEUTROPHILS # (AUTO) 5.9 X10'3 (1.8-7.7); NEUTROPHILS % (AUTO) 64.7 % (42-75); PLATELET COUNT 295 X10'3 (140-440); RED BLOOD COUNT 3.59 X10'6 (4.20-5.60); RED CELL DISTRIBUTION WIDTH 14.4 % (11.5-14.5); WHITE BLOOD COUNT 9.1 X10'3 (4.5-11.0)
--- NOTE | 2020-08-31 06:20 | NUR ---
Problems reprioritized. Patient report given, questions answered & plan of care reviewed with Loraine RN.
--- NOTE | 2020-08-31 06:24 | NUR ---
Problems reprioritized. Patient report given, questions answered & plan of care reviewed with Gina GILLIAM.
--- NOTE | 2020-08-31 06:46 | NUR ---
Patient in room TEETEE 349B. I have received report from TAWANA MONTELONGO and had the opportunity to ask questions and assume patient care.
[2020-08-31 07:00] VITALS: BP 104/70
[2020-08-31] MEDS: K and/or MAG REPLACEMENT MC SCH (08:00)
[2020-08-31] MEDS ORDERED: NORGESTIMATE ETHINYL ESTRADIOL PO SCH (08:00)
[2020-08-31] MEDS: lactobacillus rhamnosus 10,000 MMU CELLS/CAPSULE PO SCH (08:50)
[2020-08-31] MEDS: potassium Cl 20 mEq SR tablet PO PRN (08:50)
[2020-08-31] MEDS: CefTRIAXone/D5W-Rocephin 1gm 50 ML IV SCH (08:51)
[2020-08-31] MEDS: oxybutynin 5mg tablet PO PRN (08:55)
[2020-08-31 11:00] VITALS: BP 114/69
[2020-08-31] MEDS ORDERED: OXYB5TAB16 PO (11:20)
[2020-08-31] MEDS ORDERED: KETO30VI PO (11:20)
[2020-08-31] MEDS ORDERED: CEPH-572 PO (11:20)
[2020-08-31] MEDS ORDERED: FLO0.4C PO (11:20)
[2020-08-31] MEDS ORDERED: PHEN-716 PO (11:20)
[2020-08-31] MEDS ORDERED: HYDR-4383 PO (11:20)
--- NOTE | 2020-08-31 14:24 | NUR ---
PATIENT STABLE AND APPROPRIATE FOR DISCHARGE, IV TAKEN OUT, EDUCATION GIVEN, NEW MEDS E-SCRIPTED TO PREFERRED PHARMACY AND A SCRIPT GIVEN TO PATIENT FOR PAIN MEDS, ALL BELONGINGS SENT WITH PATIENT Addendum: 08/31/20 at 1626 by Gina Mast RN PATIENT TAKEN TO LOBBY IN WHEELCHAIR TO AN AWAITING CAR WHERE WILL TAKE PATIENT HOME
== END 2020-08-31 14:24 | disposition home or self-care (01) | DRG 710 ==
LOC: ER 03:10 → ED HOLD 07:51 → SUR 3N 08:40
PROVIDERS: ADMIT Family Medicine; ATTEND Family Medicine
PROC: 0TC68ZZ Extirpation of Matter from Right Ureter, Via Natural or Artificial Opening Endoscopic (ICD-10-PCS; 2020-08-28)
PROC: 0T788DZ Dilation of Bilateral Ureters with Intraluminal Device, Via Natural or Artificial Opening Endoscopic (ICD-10-PCS; 2020-08-28)
PROC: BT141ZZ Fluoroscopy of Kidneys, Ureters and Bladder using Low Osmolar Contrast (ICD-10-PCS; 2020-08-28)
PROC: 0TC78ZZ Extirpation of Matter from Left Ureter, Via Natural or Artificial Opening Endoscopic (ICD-10-PCS; principal; 2020-08-28 09:28)
DX: A41.9 Sepsis, unspecified organism (principal); N13.6 Pyonephrosis; M79.7 Fibromyalgia; B96.20 Unspecified Escherichia coli [E. coli] as the cause of diseases classified elsewhere; Z82.49 Family history of ischemic heart disease and other diseases of the circulatory system; Z87.442 Personal history of urinary calculi; Z88.8 Allergy status to other drugs, medicaments and biological substances; Z79.899 Other long term (current) drug therapy; Z28.21 Immunization not carried out because of patient refusal
CPT/HCPCS: 36415; 74018; 74176; 74420; 76000; 80048; 80053; 81001; 81025; 82948; 83605; 83690; 85025; 87040; 87077; 87081; 87088; 87186; 96365; 96375; 99285; A4618; A7000; C1758; C1769; C2617; G0378; J0696; J1885; J2250; J2270; J2405; J2704; J3010; J7030; J7120; Q9967